=== PATIENT | female | born 1940 | race Caucasian/White ===

== ENCOUNTER → 2021-12-04 | Outpatient (CLI) | payer MEDICARE ==
[2021-12-04 17:55] LABS: Basophils # (A) 0.08 X 10*3/uL (0.00-0.10); Basophils % (A) 0.9 %; Eosinophils # (A) 0.17 X 10*3/uL (0.04-0.35); Eosinophils % (A) 1.9 %; HCT 41.8 % (37.2-46.3); HGB 13.9 g/dL (12.0-15.0); Immature Grans, Automated 0.4 %; Lymphocytes # (A) 1.69 X 10*3/uL (0.90-5.00); Lymphocytes % (A) 18.9 %; MCH 27.1 pg (27.0-32.0); MCHC 33.3 g/dL (32.0-37.0); MCV 81.5 fL (80.0-97.0); Mean Platelet Volume 10.5 fL (9.5-12.2); Monocytes # (A) 0.81 X 10*3/uL (0.20-1.00); NRBC Per 100 WBC 0 /100 WBCS (0.0-0.0); Neutrophils # (A) 6.17 X 10*3/uL (1.80-7.70); Neutrophils % (A) 68.9 %; Platelet Count 380 X 10*3/uL (140-440); RBC 5.13 X 10*6/uL (4.10-5.20); RDW 13.6 % (11.5-14.5); WBC 8.96 X 10*3/uL (4.50-10.00)
[2021-12-04 18:03] LABS: African American GFR (CKD) 71.2 (60.0-200.0); Anion Gap 13.5 mmol/L (10.00-18.00); BUN/Creat Ratio 15.9 Ratio (12.00-20.00); Blood Urea Nitrogen 14.1 mg/dL (9.0-27.0); Calcium 8.6 mg/dL (8.7-10.3); Carbon Dioxide 22.8 mmol/L (20.0-27.5); Non-African American GFR(CKD) 61.5 (60.0-200.0)
[2021-12-04 19:37] LABS: INR 1.01 (0.90-1.11); Prothrombin Time 11.1 sec (9.9-11.9)
== END | disposition home or self-care (01) ==
LOC: LABPAT 12:28
PROVIDERS: ATTEND Orthopaedic Surgery
DX: Z01.812 Encounter for preprocedural laboratory examination (principal); Z22.322 Carrier or suspected carrier of Methicillin resistant Staphylococcus aureus; M17.12 Unilateral primary osteoarthritis, left knee
CPT/HCPCS: 80048; 85025; 85610; 87070

== ENCOUNTER 2021-12-25 08:55 | Day surgery (SDC) | payer MEDICARE, BC ==
[2021-12-22 12:55] VITALS: BMI 29.2
--- NOTE | 2021-12-25 03:07 | HP ---
HISTORY AND PHYSICAL DATE OF SURGERY: 12/25/2021 Pat Chawla is an 81-year-old patient seen with progressive left knee pain. We discussed options for treatment. She elected to proceed with left total knee arthroplasty. Consent was obtained. Cardiac clearance provided by Dr. Tiwari. PAST MEDICAL HISTORY: Hypothyroidism, osteoarthritis. PAST SURGICAL HISTORY: Cholecystectomy, thyroidectomy. DAILY MEDICATIONS: Synthroid. ALLERGIES: None. SOCIAL HISTORY: She denies current tobacco use. PHYSICAL EVALUATION OF THE LEFT KNEE: Her range of motion is -7 to 110. Mild effusion. Tenderness, lateral joint line. Crepitus along the lateral patellofemoral compartments with range of motion. Pain with patellofemoral compression. Ligaments stable. Hip rotation without pain. Distal neurovascular exam is intact. RADIOGRAPHS: Left knee radiographs reveal severe lateral, moderate patellofemoral compartment osteoarthritis. IMPRESSION: 1. Left knee osteoarthritis. 2. Hypothyroidism. PLAN: Left total knee arthroplasty. MMODL / IJN: [id number] /
[~2021-12-25 08:55] MED LIST: ACETAMINOPHEN TAB 500 MG TAB PO PRN; DEXAMETHASONE SOD PHOSPHATE 4 MG/ML 1 ML VIAL IV ONE; HYDROmorphone 0.5 MG/0.5 ML SYRINGE IVP PRN; LIDOCAINE 1% (10MG/ML) FOR IV START INTRADERMA PRN; MELOXICAM 7.5 MG TAB PO PRN; ONDANSETRON 4 MG/2 ML VIAL IVP PRN; TRANEXAMIC ACID IN NACL,ISO-OS 1,000 MG in SALINE 1 100ML.BAG IVPB PRN
[2021-12-25] MEDS: LACTATED RINGERS 1,000 ML IV SCH (09:31)
[2021-12-25] MEDS ORDERED: MIDAZOLAM 2 MG/2 ML VIAL IVP ONE (09:59)
[2021-12-25] MEDS ORDERED: ceFAZolin 1,000 MG in SODIUM CHLORIDE 0.9% 1,000 ML IRRIGATION ONE (10:56)
[2021-12-25] MEDS ORDERED: LACTATED RINGERS 1,000 ML IV ONE (11:33)
[2021-12-25] MEDS ORDERED: HYDROcodone/APAP 5-325MG 1 EACH TAB PO PRN (11:49)
[2021-12-25] MEDS ORDERED: NALOXONE 0.4 MG/ML 1 ML VIAL IV PRN (11:49)
[2021-12-25] MEDS ORDERED: ONDANSETRON 4 MG/2 ML VIAL IVP PRN (11:49)
[2021-12-25] MEDS ORDERED: HYDROmorphone 0.5 MG/0.5 ML SYRINGE IVP PRN ×3 (11:49)
--- NOTE | 2021-12-25 11:49 | P.OP ---
Date of Procedure: 12/25/21 Preoperative Diagnosis: Left knee osteoarthritis Postoperative Diagnosis: Left knee osteoarthritis Procedure(s) Performed: Left total knee arthroplasty Implants: 1. Depuy attune size 4 narrow left cruciate retaining cemented femur 2. Depuy attune size 3 fixed bearing cemented tibial baseplate 3. Depuy attune size 4 fixed bearing cruciate retaining 6 mm polyethylene tibial insert 4. Depuy attune 35 mm all polyethylene cemented patella Anesthesia: spinal Surgeon: Sonny Brown Engine Dynamometer Tester #1: Pavel Gupta Estimated Blood Loss (ml): 45 Pathology: other (Bone) Condition: stable Disposition: PACU Indications for Procedure: 81-year-old patient seen with symptomatic left knee osteoarthritis. After having treatment options discussed, she elected to proceed with total knee arthroplasty. Operative Findings: She description of procedure Description of Procedure: Patient was taken to the operative suite after having an adductor canal catheter placed by the department of anesthesia. Patient underwent a spinal anesthetic by the department of anesthesia. Patient was given preoperative IV intake antibiotics and TXA. A well-padded tourniquet was placed about the [] lower extremity. The lower extremity was then prepped and draped in the normal sterile orthopedic fashion. The extremity was elevated, a tourniquet was insufflated to 300. A standard anterior incision was made sharply through skin. Dissection was taken down through the subcutaneous soft tissues down to the extensor mechanism. A medial arthrotomy was performed, patella was everted and knee was flexed. There was advanced osteoarthritis noted. I introduced my distal intramedullary femoral drill. I then introduced the distal femoral cutting jig. Conrado DOYLE secured the cutting jig with 2 pins. I held retractors in position while Conrado DOYLE performed the distal femoral resection through the guide area we now removed her distal femoral cutting guide. We now placed our 4-in-1 femoral cutting block and positioned and it was secured with 2 pins by Conrado DOYLE while I held the block in position. The distal femoral finishing was now completed. A proximal tibial cutting guide was positioned. I held the guide in the appropriate position with both hands well Conrado DOYLE inserted stabilizing pins into the guide. Proximal tibial cut was made. We now placed a trial femoral component into position, along with an appropriate size tibial tray and insert. We now took the knee through range of motion and had full extension good flexion and good overall soft tissue balance noted. The patella was everted and stabilized with 2 towel clips held by Conrado DOYLE while I performed a flush with patellar quad tendon utilizing a fresh sawblade. We templated the patella, appropriate drill holes were made. An appropriate trial patella was positioned, knee was taken through full range of motion with the patella tracking very nicely. The trial patella was removed. Drill holes were made through the femoral component. All trial components were removed after marking off the appropriate rotation of the tibia. Retractors were now positioned along the proximal tibia. An appropriate keel punch was made with the appropriate size tibial guide by myself on Conrado DOYLE assisted by holding retractors. At this point appropriate size implants were chosen and opened. The joint was irrigated copiously with pulse lavage mechanical irrigation. The posterior capsule was infiltrated with local analgesic. The wound was irrigated with pulse lavage mechanical irrigation. We mixed antibiotic methylmethacrylate. We placed the knee into flexion. We placed multiple retractors assisted by Conrado DOYLE to expose the proximal tibia. Once the methyl methacrylate was ready, the tibial component was cemented into place removing any excess methylmethacrylate form by both myself and Conrado DOYLE. The femoral component was cemented into place removing the removing any excess methylmethacrylate performed by both myself and Conrado DOYLE. We then inserted the appropriate size polyethylene tibial insert. We made sure that it was locked into position. We took the knee into full extension, and then back in a flexion making sure we had removed any excess methylmethacrylate. The patellar component was then cemented down and secured with clamp. Excess meth ylmethacrylate removed. We kept the knee in full extension, patellar clamp in position until methylmethacrylate had hardened. Once it had hardened the patellar clamp was removed. The knee was taken through full range of motion. The patella tracked nicely. There was good soft tissue balancing. The tourniquet was now released. Additional hemostasis was achieved via electrocautery. A second gram of TXA was given. The wound again was irrigated with pulse lavage mechanical irrigation. The extensor mechanism was repaired with Ethibond suture. We checked the repair with range of motion and it was stable. The subcutaneous soft tissues were repaired with Vicryl in layers. The skin was approximated with pernio/Dermabond. Sterile dressings were applied followed by loose web roll and Tam bandage. The patient was transferred to a bed, and taken to recovery in stable and satisfactory condition. Conrado DOYLE assisted with this complex procedure.
[2021-12-25] MEDS ORDERED: ROPIVACAINE 0.2%-NS ON-Q PUMP 2 MG/ML EACH MISCELLANE ONE (12:35)
--- NOTE | 2021-12-25 12:54 | XR ---
EXAMINATION TYPE: XR knee limited LT DATE OF EXAM: 12/25/2021 COMPARISON: 09/24/2014 HISTORY: Postknee replacement TECHNIQUE: 2 view left knee FINDINGS: Tibiofemoral components of place. Postsurgical soft tissue changes are present. No acute fr actures are evident. IMPRESSION: 1. No acute fracture post knee replacement
[2021-12-25] MEDS ORDERED: SYMBICORT INHALATION PRN (14:24)
[2021-12-25] MEDS: SODIUM CHLORIDE 0.9% 1,000 ML IV SCH (14:51)
[2021-12-25] MEDS: HYDROcodone/APAP 5-325MG 1 EACH TAB PO PRN (16:17)
--- NOTE | 2021-12-25 19:36 | P.ANPRN ---
Procedure Note - Anesthesia - Nerve Block Performed Left Adductor Canal Infusion Time Out Performed: Yes Date of Procedure: 12/25/21 Procedure Start Time: :59 Procedure Stop Time: :19 Location of Patient: PreOp Indication: Acute Post-Operative Pain, Requested by Surgeon Sedation Type: Sedate with meaningful contact maintained Preparation: Sterile Prep, Sterile Dressing Position: Supine Catheter: Indwelling Needle Types: Pajunk Needle Gauge: 21 Ultrasound used to visualize needle placement: Yes Ultrasound used to observe medication spread: Yes Blood Aspirated: No Pain Paresthesia on Injection Noted: No Resistance on Injection: Normal Image Stored and Saved: Yes Events: Uneventful and Well Tolerated (ropi .5% 25cc plus dexamethasone 4mg)
[2021-12-25] MEDS: SENNOSIDES-DOCUSATE SODIUM 1 EACH TAB PO SCH (20:17)
[2021-12-26] MEDS: LEVOTHYROXINE 75 MCG TAB PO SCH (06:13)
--- NOTE | 2021-12-26 07:04 | P.PN ---
Progress Note - Text 12/26/21 658am 81-year-old female status post total knee replacement by Dr. Cunningham. Patient has an On-Q pump for postop pain control with the solution running at 8 mL an hour with a VAS of 0. Dressing clean dry and intact. Plan to continue On-Q pump infusion
[2021-12-26] MEDS: LACTATED RINGERS 1,000 ML IV SCH (07:37)
--- NOTE | 2021-12-26 09:19 | P.CONS ---
History of Present Illness - Reason for Consult Consult date: 12/25/21 Medical management - Chief Complaint Status post surgery - History of Present Illness Patient is a 81-year-old female with a known history of hypertension, COPD, hypothyroidism and obstructive sleep apnea not on CPAP at home and prior history of smoking was hospital for left total knee arthroplasty. Patient tolerated the procedure. Currently denied any complaints of pain. On nerve block. No complaints of headache or dizziness or lightheadedness. No fever no chills. No cough or sputum production. No nausea vomiting or abdominal pain or diarrhea. Denied any dysuria. Postoperative blood pressure is on the lower side. Patient is not on home oxygen at home. No complaints of chest pain or shortness of breath. Review of Systems Constitutional: Patient denies any fever or chills . No generalized weakness or weight loss. Abdomen: Patient denied nausea vomiting and diarrhea and abdominal pain. Cardiovascular: Patient denies any chest pain or short of breath no palpitations. Respiratory: patient denied any cough is from production. No shortness of breath Neurologic: Patient denied any numbness or tingling headache. Musculoskeletal: Patient denies any complaints of joint swelling or deformity. Skin: Negative Psychiatric: Negative Endocrine: No heat or cold intolerance. No recent weight gain. Genitourinary: No dysuria or hematuria. All other 14 point ROS negative except the above Past Medical History Past Medical History: COPD, Hypertension, Rheumatoid Arthritis (RA), Sleep Apnea/CPAP/BIPAP, Thyroid Disorder Additional Past Medical History / Comment(s): "Rheumatoid lung". No CPAP use. History of Any Multi-Drug Resistant Organisms: None Reported Past Surgical History: Cholecystectomy Additional Past Surgical History / Comment(s): Partial Thyroidectomy, D&C. Past Anesthesia/Blood Transfusion Reactions: No Reported Reaction Past Psychological History: No Psychological Hx Reported Smoking Status: Former smoker Past Alcohol Use History: Occasional Additional Past Alcohol Use History / Comment(s): Quit smoking in 1999. Past Drug Use History: None Reported - Past Family History Mother Family Medical History: No Reported History Medications and Allergies Home Medications Medication Instructions Recorded Confirmed Type Levothyroxine Sodium [Synthroid] 75 mcg PO QAM 08/22/14 12/22/21 History Symbicort Inhaler (Unknown Dose) 1 puff INHALATION DAILY PRN 06/13/15 12/25/21 History Metoprolol Tartrate [Lopressor] 50 mg PO QAM 12/22/21 12/22/21 History Allergies Allergy/AdvReac Type Severity Reaction Status Date / Time No Known Allergies Allergy Verified 12/25/21 09:36 Physical Exam Vitals: Vital Signs Temp Pulse Pulse Resp BP Pulse Ox 12/25/21 14:00 97.2 F L 69 17 112/60 96 12/25/21 12:50 74 16 106/57 97 12/25/21 12:35 66 16 104/54 100 12/25/21 12:20 97.3 F L 71 14 111/54 99 12/25/21 10:21 85 16 118/68 94 L 12/25/21 09:34 98.5 F 12/25/21 09:23 98.7 F 89 16 166/72 97 Intake and Output 12/24/21 12/25/21 12/25/21 22:59 06:59 14:59 Intake Total 1401 Output Total 45 Balance 1356 Intake: IV 1401 Output: Estimated Blood Loss 45 Other: Weight 70.4 kg PHYSICAL EXAMINATION: Patient is lying in the bed comfortably, no acute distress, awake alert and oriented.. HEENT: Normocephalic. Neck is supple. Pupils reactive. Nostrils clear. Oral cavity is moist. Neck reveals no JVD, carotid bruits, or thyromegaly. CHEST EXAMINATION: Trachea is central. Symmetrical expansion. Lung ibarra clear to auscultation and percussion. CARDIAC: Normal S1, S2 with no gallops. No murmurs ABDOMEN: Soft. Bowel sounds normal. No organomegaly. No abdominal bruits. Extremities: reveal no edema. No clubbing or cyanosis Neurologically awake, alert, oriented x3 with well-coordinated movements. No focal deficits noted Skin: No rash or skin lesions. Psychiatric: Coperative. Nonsuicidal Musculoskeletal: No joint swelling or deformity. Normal range of motion. Assessment and Plan Assessment: Status post left total knee arthroplasty postoperative day 0 Hypertension controlled now COPD not in exacerbation. Patient is not on home oxygen Obstructive sleep apnea not on CPAP at home Previous history of smoking DVT prophylaxis and GI prophylaxis Plan: Patient will be continued on current pain medication, bowel regimen and encourage incentive spirometry. Patient will be continued on metoprolol and other home medications including levothyroxine starting tomorrow morning. Albuterol inhalation as needed and continue with Symbicort. Follow-up CBC and BMP tomorrow. Further recommendations based on the clinical course. Thank you for your consult.
[2021-12-26] MEDS: ENOXAPARIN 40 MG/0.4 ML SYRINGE SQ SCH (09:20)
[2021-12-26] MEDS: METOPROLOL TARTRATE 50 MG TAB PO SCH (09:20)
[2021-12-26] MEDS: SODIUM CHLORIDE 0.9% 1,000 ML IV SCH (09:21)
[2021-12-26 10:03] LABS: Basophils # (A) 0.03 X 10*3/uL (0.00-0.10); Basophils % (A) 0.3 %; Eosinophils # (A) 0.01 X 10*3/uL (0.04-0.35); Eosinophils % (A) 0.1 %; HCT 36.6 % (37.2-46.3); HGB 11.8 g/dL (12.0-15.0); Immature Grans, Automated 0.4 %; Lymphocytes # (A) 1.27 X 10*3/uL (0.90-5.00); Lymphocytes % (A) 10.7 %; MCH 27.3 pg (27.0-32.0); MCHC 32.2 g/dL (32.0-37.0); MCV 84.7 fL (80.0-97.0); Mean Platelet Volume 10.5 fL (9.5-12.2); Monocytes # (A) 1.17 X 10*3/uL (0.20-1.00); Monocytes % (A) 9.8 %; NRBC Per 100 WBC 0 /100 WBCS (0.0-0.0); Neutrophils # (A) 9.38 X 10*3/uL (1.80-7.70); Neutrophils % (A) 78.7 %; Platelet Count 323 X 10*3/uL (140-440); RBC 4.32 X 10*6/uL (4.10-5.20); RDW 14.1 % (11.5-14.5); WBC 11.91 X 10*3/uL (4.50-10.00)
--- NOTE | 2021-12-26 10:30 | P.PN ---
Subjective Progress Note Date: 12/26/21 Principal diagnosis: Left knee osteoarthritis Patient was seen at bedside resting template sitting up in chair. Patient says she did get up with physical therapy this morning and walk to the bathroom and around the room. Patient says she does have a walker for home. Patient says she lives at home alone. Patient says she has not had bowel movement yet, however, patient says she has been passing gas. Patient says she has been urinating since surgery. Patient denies chest pain, fever, short of breath, nausea, vomiting, change in vision, loss of bowel/bladder control. Objective - Vital Signs Vital signs: Vital Signs Temp 97.9 F 12/26/21 08:00 Pulse 76 12/26/21 08:00 Resp 14 12/26/21 08:00 BP 116/65 12/26/21 08:00 Pulse Ox 98 12/26/21 08:00 FiO2 Intake & Output 12/25/21 12/26/21 12/26/21 18:59 06:59 18:59 Intake Total 1401 Output Total 45 Balance 1356 Weight 70.4 kg Intake: IV 1401 Output: Estimated Blood Loss 45 Other: Voiding Method Bedpan # Voids 3 - Exam Left knee: Incision is clean, dry, and intact. The silver foam dressing is in good condition. There is minimal soft tissue swelling and ecchymosis surrounding the medial and lateral aspects of the incision. Calf is soft, no tenderness with palpation. Plantar flexion, dorsiflexion, EHL, FHL are intact. Sensory exam to light touch throughout the extremity is intact, dorsal pedis pulses 2+. - Labs CBC & Chem 7: 12/26/21 05:58 Labs: Abnormal Lab Results - Last 24 Hours (Table) 12/26/21 Range/Units 05:58 WBC 11.91 H (4.50-10.00) X 10*3/uL Hgb 11.8 L (12.0-15.0) g/dL Hct 36.6 L (37.2-46.3) % Immature Gran # 0.05 H (0.00-0.04) X 10*3/uL Neutrophils # 9.38 H (1.80-7.70) X 10*3/uL Monocytes # 1.17 H (0.20-1.00) X 10*3/uL Eosinophils # 0.01 L (0.04-0.35) X 10*3/uL Assessment and Plan Assessment: 1. Left knee osteoarthritis - Postoperative day 1 status post left total knee arthroplasty Plan: 1. Left knee osteoarthritis - left total knee arthroplasty from , , 12/25/2021. Patient was stable at bedside this morning. Patient does have a walker for home. Patient did work with physical therapy this morning and was able to get up to the bathroom and back to chair. At this time patient will stay one more night and plan for discharge home tomorrow, 12/27/2021 with health services vs [facility]. 2. Appreciate medical management 3. Pain management - [place] 4. DVT prophylaxis - Lovenox 5. GI prophylaxis - senna 6. PT/OT - weightbearing as tolerated with walker 7. Encourage incentive spirometer use 8. Discharge planning - plan for discharge home tomorrow with health services versus [facility] Time with Patient: Less than 30
[2021-12-26] MEDS: MULTIVITAMINS, THERA 1 EACH TAB PO SCH (12:55)
[2021-12-26] MEDS: HYDROcodone/APAP 5-325MG 1 EACH TAB PO PRN ×2 (15:04→22:03)
[2021-12-26] MEDS: SENNOSIDES-DOCUSATE SODIUM 1 EACH TAB PO SCH ×2 (22:02→22:06)
[2021-12-27] MEDS: LACTATED RINGERS 1,000 ML IV SCH (06:09)
[2021-12-27] MEDS: LEVOTHYROXINE 75 MCG TAB PO SCH (06:10)
[2021-12-27] MEDS: ENOXAPARIN 40 MG/0.4 ML SYRINGE SQ SCH (08:48)
[2021-12-27] MEDS: HYDROcodone/APAP 5-325MG 1 EACH TAB PO PRN ×2 (08:48→19:36)
[2021-12-27] MEDS: METOPROLOL TARTRATE 50 MG TAB PO SCH (08:48)
[2021-12-27] MEDS: MULTIVITAMINS, THERA 1 EACH TAB PO SCH (08:48)
--- NOTE | 2021-12-27 11:20 | P.PN ---
Subjective Progress Note Date: 12/27/21 Principal diagnosis: Left knee osteoarthritis Patient was seen at bedside this morning. Patient says she did get up with physical therapy this morning and walked into hallway using walker. Patient says she does have a walker for home. Patient says she lives at home alone. Patient says she has not had bowel movement yet, however, patient says she has been passing gas. Patient says she has been urinating since surgery. Patient denies chest pain, fever, short of breath, nausea, vomiting, change in vision, loss of bowel/bladder control. Objective - Vital Signs Vital signs: Vital Signs Temp 98.7 F 12/27/21 07:59 Pulse 88 12/27/21 07:59 Resp 16 12/27/21 07:59 BP 124/72 12/27/21 07:59 Pulse Ox 91 L 12/27/21 07:59 FiO2 Intake & Output 12/26/21 12/27/21 12/27/21 18:59 06:59 18:59 Intake Total 500 Balance 500 Intake: Oral 500 Other: Voiding Method Toilet Toilet Bedside Commode # Voids 5 - Exam Left knee: Incision is clean, dry, and intact. The silver foam dressing is in good condit ion. There is minimal soft tissue swelling and ecchymosis surrounding the medial and lateral aspects of the incision. Calf is soft, no tenderness with palpation. Plantar flexion, dorsiflexion, EHL, FHL are intact. Sensory exam to light touch throughout the extremity is intact, dorsal pedis pulses 2+. - Labs CBC & Chem 7: 12/26/21 05:58 Assessment and Plan Assessment: 1. Left knee osteoarthritis - Postoperative day 2 status post left total knee arthroplasty Plan: 1. Left knee osteoarthritis - left total knee arthroplasty perfromed , 12/25/2021. Patient was stable at bedside this morning. Patient does have a walker for home. Patient did work with physical therapy this morning and was able to walk around room and into hallway. Physical therapy is recommending [facility] upon discharge. Plan for discharge to [facility] on 12/29/2021. 2. Appreciate medical management 3. Pain management - [place] 4. DVT prophylaxis - Lovenox 5. GI prophylaxis - senna 6. PT/OT - weightbearing as tolerated with walker 7. Encourage incentive spirometer use 8. Discharge planning - Plan for discharge to [facility] on 12/29/2021. Time with Patient: Less than 30
[2021-12-27] MEDS: SENNOSIDES-DOCUSATE SODIUM 1 EACH TAB PO SCH (19:36)
[2021-12-28] MEDS: LACTATED RINGERS 1,000 ML IV SCH (05:49)
[2021-12-28] MEDS: LEVOTHYROXINE 75 MCG TAB PO SCH (05:49)
[2021-12-28] MEDS: METOPROLOL TARTRATE 50 MG TAB PO SCH (08:34)
[2021-12-28] MEDS: ENOXAPARIN 40 MG/0.4 ML SYRINGE SQ SCH (08:34)
[2021-12-28 09:31] LABS: Basophils # (A) 0.07 X 10*3/uL (0.00-0.10); Basophils % (A) 0.8 %; Eosinophils # (A) 0.21 X 10*3/uL (0.04-0.35); Eosinophils % (A) 2.5 %; HCT 37.2 % (37.2-46.3); HGB 12.2 g/dL (12.0-15.0); Immature Grans, Automated 0.4 %; Lymphocytes # (A) 1.88 X 10*3/uL (0.90-5.00); Lymphocytes % (A) 22.5 %; MCH 27.6 pg (27.0-32.0); MCHC 32.8 g/dL (32.0-37.0); MCV 84.2 fL (80.0-97.0); Mean Platelet Volume 10.3 fL (9.5-12.2); Monocytes # (A) 1.03 X 10*3/uL (0.20-1.00); Monocytes % (A) 12.3 %; NRBC Per 100 WBC 0 /100 WBCS (0.0-0.0); Neutrophils # (A) 5.15 X 10*3/uL (1.80-7.70); Neutrophils % (A) 61.5 %; Platelet Count 302 X 10*3/uL (140-440); RBC 4.42 X 10*6/uL (4.10-5.20); RDW 14.4 % (11.5-14.5); WBC 8.37 X 10*3/uL (4.50-10.00)
--- NOTE | 2021-12-28 10:54 | P.PN ---
Subjective Progress Note Date: 12/28/21 Principal diagnosis: Left knee osteoarthritis Patient was seen at bedside this morning. Patient says she did get up with physical therapy this morning and walked into hallway using walker. Patient says she does have a walker for home. Patient says she lives at home alone. Patient says she has not had bowel movement yet, however, patient says she has been passing gas. Patient says she has been urinating since surgery. Patient denies chest pain, fever, short of breath, nausea, vomiting, change in vision, loss of bowel/bladder control. Objective - Vital Signs Vital signs: Vital Signs Temp 97.9 F 12/28/21 02:00 Pulse 99 12/28/21 02:00 Resp 17 12/27/21 19:36 BP 126/73 12/28/21 02:00 Pulse Ox 94 L 12/28/21 02:00 FiO2 Intake & Output 12/27/21 12/28/21 12/28/21 18:59 06:59 18:59 Intake Total 0 Balance 0 Intake: Intake, IV Titration 0 Amount Sodium Chloride 0.9% 1, 0 000 ml @ 50 mls/hr IV . Q20H [facility] Rx#:[id number] Other: Voiding Method Toilet # Voids 1 - Exam Left knee: Incision is clean, dry, and intact. The silver foam dressing is in good condition. There is minimal soft tissue swelling and ecchymosis surrounding the medial and lateral aspects of the incision. Calf is soft, no tenderness with palpation. Plantar flexion, dorsiflexion, EHL, FHL are intact. Sensory exam to light touch throughout the extremity is intact, dorsal pedis pulses 2+. - Labs CBC & Chem 7: 12/28/21 03:48 Assessment and Plan Assessment: 1. Left knee osteoarthritis - Postoperative day 3 status post left total knee arthroplasty Plan: 1. Left knee osteoarthritis - left total knee arthroplasty perfromed , 12/25/2021. Patient was stable at bedside this morning. Patient does have a walker for home. Patient did work with physical therapy this morning and was able to walk around room and into hallway. Physical therapy is recommending [facility] upon discharge. Plan for discharge to [facility], 12/29/2021. 2. Appreciate medical management 3. Pain management - [place] 4. DVT prophylaxis - Lovenox 5. GI prophylaxis - senna 6. PT/OT - weightbearing as tolerated with walker 7. Encourage incentive spirometer use 8. Discharge planning - Plan for discharge to [facility], 12/29/2021. Time with Patient: Less than 30
[2021-12-28] MEDS: MULTIVITAMINS, THERA 1 EACH TAB PO SCH (11:21)
--- NOTE | 2021-12-28 12:04 | P.PN ---
Subjective Progress Note Date: 12/26/21 Patient is a 81-year-old female with a known history of hypertension, COPD, hypothyroidism and obstructive sleep apnea not on CPAP at home and prior history of smoking was hospital for left total knee arthroplasty. Patient tolerated the procedure. Currently denied any complaints of pain. On nerve block. No complaints of headache or dizziness or lightheadedness. No fever no chills. No cough or sputum production. No nausea vomiting or abdominal pain or diarrhea. Denied any dysuria. Postoperative blood pressure is on the lower side. Patient is not on home oxygen at home. No complaints of chest pain or shortness of breath. 12/26/2021 Patient is currently resting in the bed. Awake alert and oriented 3. Complains of left knee pain but improved with medications. No fever no chills. No nausea vomiting or abdominal pain or diarrhea. No cough or sputum production. Patient was encouraged with incentive spirometry. Was able to participate in physical therapy. Laboratory data showed WBC 10.3 hemoglobin 10.4 and platelets 176 Sodium 1:30 potassium 3.9 chloride 91 bicarb is 29 BUN 15 and creatinine 0.4. Current medications reviewed. Objective - Vital Signs Vital signs: Vital Signs Temp 97.9 F 12/26/21 08:00 Pulse 76 12/26/21 08:00 Resp 14 12/26/21 08:00 BP 116/65 12/26/21 08:00 Pulse Ox 98 12/26/21 08:00 FiO2 Intake & Output 12/25/21 12/26/21 12/26/21 18:59 06:59 18:59 Intake Total 1401 Output Total 45 Balance 1356 Weight 70.4 kg Intake: IV 1401 Output: Estimated Blood Loss 45 Other: Voiding Method Bedpan # Voids 3 - Exam PHYSICAL EXAMINATION: Patient is lying in the bed comfortably, no acute distress, awake alert and oriented.. HEENT: Normocephalic. Neck is supple. Pupils reactive. Nostrils clear. Oral cavity is moist. Neck reveals no JVD, carotid bruits, or thyromegaly. CHEST EXAMINATION: Trachea is central. Symmetrical expansion. Lung ibarra clear to auscultation and percussion. CARDIAC: Normal S1, S2 with no gallops. No murmurs ABDOMEN: Soft. Bowel sounds normal. No organomegaly. No abdominal bruits. Extremities: reveal no edema. No clubbing or cyanosis Neurologically awake, alert, oriented x3 with well-coordinated movements. No focal deficits noted Skin: No rash or skin lesions. Psychiatric: Coperative. Nonsuicidal Musculoskeletal: No joint swelling or deformity. Normal range of motion. - Labs CBC & Chem 7: 12/28/21 03:48 Assessment and Plan Assessment: Status post left total knee arthroplasty postoperative day 1 Hypertension controlled now COPD not in exacerbation. Patient is not on home oxygen Obstructive sleep apnea not on CPAP at home Previous history of smoking DVT prophylaxis and GI prophylaxis Plan: Patient will be continued on current pain medication, bowel regimen and encourage incentive spirometry. Patient will be continued on metoprolol and other home medications including levothyroxine restarted.. Albuterol inhalation as needed and continue with Symbicort. We will continue to follow and Further recommendations based on the clinical c marcie.
--- NOTE | 2021-12-28 12:05 | P.PN ---
Subjective Progress Note Date: 12/27/21 Patient is a 81-year-old female with a known history of hypertension, COPD, hypothyroidism and obstructive sleep apnea not on CPAP at home and prior history of smoking was hospital for left total knee arthroplasty. Patient tolerated the procedure. Currently denied any complaints of pain. On nerve block. No complaints of headache or dizziness or lightheadedness. No fever no chills. No cough or sputum production. No nausea vomiting or abdominal pain or diarrhea. Denied any dysuria. Postoperative blood pressure is on the lower side. Patient is not on home oxygen at home. No complaints of chest pain or shortness of breath. 12/26/2021 Patient is currently resting in the bed. Awake alert and oriented 3. Complains of left knee pain but improved with medications. No fever no chills. No nausea vomiting or abdominal pain or diarrhea. No cough or sputum production. Patient was encouraged with incentive spirometry. Was able to participate in physical therapy. Laboratory data showed WBC 10.3 hemoglobin 10.4 and platelets 176 Sodium 1:30 potassium 3.9 chloride 91 bicarb is 29 BUN 15 and creatinine 0.4. 12/27/2021 Patient is lying in the bed awake alert oriented 3. Knee pain is better. No complaints of chest pain or shortness of breath. No nausea vomiting abdominal pain or diarrhea. No cough or sputum production. Tolerating oral diet. Patient was encouraged with incentive spirometry. No other acute overnight issues. Blood pressure is controlled and patient is on room air saturating at 94%. Current medications reviewed. Objective - Vital Signs Vital signs: Vital Signs Temp 99.0 F 12/27/21 19:34 Pulse 93 12/27/21 19:34 Resp 17 12/27/21 19:34 BP 135/70 12/27/21 19:34 Pulse Ox 93 L 12/27/21 19:34 FiO2 Intake & Output 12/27/21 12/27/21 12/28/21 06:59 18:59 06:59 Intake Total 0 Balance 0 Intake: Intake, IV Titration 0 Amount Sodium Chloride 0.9% 1, 0 000 ml @ 50 mls/hr IV . Q20H [facility] Rx#:[id number] Other: Voiding Method Toilet # Voids 5 - Exam PHYSICAL EXAMINATION: Patient is lying in the bed comfortably, no acute distress, awake alert and oriented.. HEENT: Normocephalic. Neck is supple. Pupils reactive. Nostrils clear. Oral cavity is moist. Neck reveals no JVD, carotid bruits, or thyromegaly. CHEST EXAMINATION: Trachea is central. Symmetrical expansion. Lung ibarra clear to auscultation and percussion. CARDIAC: Normal S1, S2 with no gallops. No murmurs ABDOMEN: Soft. Bowel sounds normal. No organomegaly. No abdominal bruits. Extremities: reveal no edema. No clubbing or cyanosis Neurologically awake, alert, oriented x3 with well-coordinated movements. No focal deficits noted Skin: No rash or skin lesions. Psychiatric: Coperative. Nonsuicidal Musculoskeletal: No joint swelling or deformity. Normal range of motion. - Labs CBC & Chem 7: 12/28/21 03:48 Assessment and Plan Assessment: Status post left total knee arthroplasty postoperative day 2 Hypertension controlled now COPD not in exacerbation. Patient is not on home oxygen Obstructive sleep apnea not on CPAP at home Previous history of smoking DVT prophylaxis and GI prophylaxis Plan: Patient will be continued on current pain medication, bowel regimen and encourage incentive spirometry. Patient will be continued on metoprolol and other home medications including levothyroxine restarted.. Albuterol inhalation as needed and continue with Symbicort. We will continue to follow and Further recommendations based on the clinical course.
[2021-12-28] MEDS: SENNOSIDES-DOCUSATE SODIUM 1 EACH TAB PO SCH (20:40)
[2021-12-29] MEDS: LEVOTHYROXINE 75 MCG TAB PO SCH (05:37)
[2021-12-29] MEDS: METOPROLOL TARTRATE 50 MG TAB PO SCH (09:42)
[2021-12-29] MEDS: ENOXAPARIN 40 MG/0.4 ML SYRINGE SQ SCH (09:42)
--- NOTE | 2021-12-29 11:31 | P.PN ---
Subjective Progress Note Date: 12/28/21 Patient is a 81-year-old female with a known history of hypertension, COPD, hypothyroidism and obstructive sleep apnea not on CPAP at home and prior history of smoking was hospital for left total knee arthroplasty. Patient tolerated the procedure. Currently denied any complaints of pain. On nerve block. No complaints of headache or dizziness or lightheadedness. No fever no chills. No cough or sputum production. No nausea vomiting or abdominal pain or diarrhea. Denied any dysuria. Postoperative blood pressure is on the lower side. Patient is not on home oxygen at home. No complaints of chest pain or shortness of breath. 12/26/2021 Patient is currently resting in the bed. Awake alert and oriented 3. Complains of left knee pain but improved with medications. No fever no chills. No nausea vomiting or abdominal pain or diarrhea. No cough or sputum production. Patient was encouraged with incentive spirometry. Was able to participate in physical therapy. Laboratory data showed WBC 10.3 hemoglobin 10.4 and platelets 176 Sodium 1:30 potassium 3.9 chloride 91 bicarb is 29 BUN 15 and creatinine 0.4. 12/27/2021 Patient is lying in the bed awake alert oriented 3. Knee pain is better. No complaints of chest pain or shortness of breath. No nausea vomiting abdominal pain or diarrhea. No cough or sputum production. Tolerating oral diet. Patient was encouraged with incentive spirometry. No other acute overnight issues. Blood pressure is controlled and patient is on room air saturating at 94%. 2001 Patient is resting in bed comfortably. Awake alert oriented 3 no complaints of fever or chills. No chest pain or shortness of breath. denied any bowel movement yet today. No cough or sputum production. Left knee pain is better. Patient is able to walk with walker. No other acute overnight issues. Current medications reviewed. Objective - Vital Signs Vital signs: Vital Signs Temp 98.0 F 12/28/21 08:00 Pulse 82 12/28/21 08:00 Resp 16 12/28/21 08:00 BP 107/63 12/28/21 08:00 Pulse Ox 94 L 12/28/21 08:00 FiO2 Intake & Output 12/27/21 12/28/21 12/28/21 18:59 06:59 18:59 Intake Total 0 Balance 0 Intake: Intake, IV Titration 0 Amount Sodium Chloride 0.9% 1, 0 000 ml @ 50 mls/hr IV . Q20H [facility] Rx#:[id number] Other: Voiding Method Toilet # Voids 1 - Exam PHYSICAL EXAMINATION: Patient is lying in the bed comfortably, no acute distress, awake alert and or iented.. HEENT: Normocephalic. Neck is supple. Pupils reactive. Nostrils clear. Oral cavity is moist. Neck reveals no JVD, carotid bruits, or thyromegaly. CHEST EXAMINATION: Trachea is central. Symmetrical expansion. Lung ibarra clear to auscultation and percussion. CARDIAC: Normal S1, S2 with no gallops. No murmurs ABDOMEN: Soft. Bowel sounds normal. No organomegaly. No abdominal bruits. Extremities: reveal no edema. No clubbing or cyanosis Neurologically awake, alert, oriented x3 with well-coordinated movements. No focal deficits noted Skin: No rash or skin lesions. Psychiatric: Coperative. Nonsuicidal Musculoskeletal: No joint swelling or deformity. Normal range of motion. - Labs CBC & Chem 7: 12/28/21 03:48 Labs: Abnormal Lab Results - Last 24 Hours (Table) 12/28/21 Range/Units 03:48 Monocytes # 1.03 H (0.20-1.00) X 10*3/uL Assessment and Plan Assessment: Status post left total knee arthroplasty postoperative day 3 Hypertension controlled now COPD not in exacerbation. Patient is not on home oxygen Obstructive sleep apnea not on CPAP at home Previous history of smoking DVT prophylaxis and GI prophylaxis Plan: Patient will be continued on current pain medication, bowel regimen and encourage incentive spirometry. Patient will be continued on metoprolol and other home medications including levothyroxine restarted.. Albuterol inhalation as needed and continue with Symbicort. We will continue to follow and Further recommendations based on the clinical course.
--- NOTE | 2021-12-29 12:35 | P.PN ---
Subjective Progress Note Date: 12/29/21 Principal diagnosis: Left knee osteoarthritis Patient was seen at bedside this morning. Patient says she did get up with physical therapy this morning and walked into hallway using walker. Patient says she does have a walker for home. Patient says she lives at home alone. Patient says she has not had bowel movement yet, however, patient says she has been passing gas. Patient says she has been urinating since surgery. Patient denies chest pain, fever, short of breath, nausea, vomiting, change in vision, loss of bowel/bladder control. Objective - Vital Signs Vital signs: Vital Signs Temp 97.7 F 12/29/21 07:50 Pulse 90 12/29/21 07:50 Resp 18 12/29/21 07:50 BP 122/63 12/29/21 07:50 Pulse Ox 91 L 12/29/21 07:50 FiO2 Intake & Output 12/28/21 12/29/21 12/29/21 18:59 06:59 18:59 Output Total 300 Balance -300 Output: Urine 300 Other: Voiding Method Toilet - Exam Left knee: Incision is clean, dry, and intact. The silver foam dressing is in good condition. There is minimal soft tissue swelling and ecchymosis surrounding the medial and lateral aspects of the incision. Calf is soft, no tenderness with palpation. Plantar flexion, dorsiflexion, EHL, FHL are intact. Sensory exam to light touch throughout the extremity is intact, dorsal pedis pulses 2+. - Labs CBC & Chem 7: 12/28/21 03:48 Assessment and Plan Assessment: 1. Left knee osteoarthritis - Postoperative day 4 status post left total knee arthroplasty Plan: 1. Left knee osteoarthritis - left total knee arthroplasty perfromed , 12/25/2021. Patient was stable at bedside this morning. Patient does have a walker for home. Patient did work with physical therapy this morning and was able to walk around room and into hallway. Physical therapy is recommending [facility] upon discharge. Plan for discharge to [facility] today, 12/29/2021. 2. Appreciate medical management 3. Pain management - [place] 4. DVT prophylaxis - Lovenox; to [facility] with Eliquis 5. GI prophylaxis - senna; to [facility] with Colace 6. PT/OT - weightbearing as tolerated with walker 7. Encourage incentive spirometer use 8. Discharge planning - Plan for discharge to [facility] today, 12/29/2021. Time with Patient: Less than 30
--- NOTE | 2021-12-29 12:42 | P.DS ---
Providers Date of admission: 12/25/2021 Expected date of discharge: 12/29/21 Attending physician: Sonny Brown Consults: 12/25/21 11:49 Consult Physician Routine Consulting Provider: Angelica Mosher Consult Reason/Comments: Medical management Do you want consulting provider notified?: Yes Primary care physician: Megahn Adam Hospital Course: Date of admission: 12/25/2021 Date of discharge: 12/29/2021 Admission diagnosis: Left knee osteoarthritis Discharge diagnosis: Same Attending physician: Dr. Brown Surgical procedures: Left total knee arthroplasty Brief history: Patient is a 81-year-old female with a history of progressive primary left knee osteoarthritis. At this point patient has failed conservative treatment measures and has opted to proceed with a elective left total knee arthroplasty. Hospital course: Details of patient's surgery can be found in operative report. Patient tolerated the procedure well and was subsequently transported to orthopedic floor. Patient's orthopeidc and medical care was provided daily. Patient had daily laboratory tests performed for evaluation of overall blood counts. Patient had daily physical therapy to include strengthening range of motion as well as education with walker ambulation. Patient was treated with Lovenox for their postoperative DVT prophylaxis during their inpatient stay. Patient was noted to have a relatively uneventful postoperative course. Patient reported satisfactory pain control with oral pain medications by postoperative day 4. Patient showed satisfactory progress with physical therapy. Patient moved steadily through the program and had no difficulty meeting the goals by postoperative day 4. Given patient's otherwise satisfactory course and having met physical therapy goals, plan is to discharge patient to rehab on postoperative day 4. Discharge condition/disposition: Patient will be discharged to rehab in stable condition. Discharge medications: Instructions are given on resumption of patient's normal daily medications per primary care recommendation, in addition patient will be prescribed [place]; Colace; Eliquis. Discharge instructions: 1. Wound care and infection precautions, keep incision dry and covered while showering, no lotions, creams, moisturizers. No soaking, tubs, pools, hottubs. Do not scrub over the incision. 2. Weight-bear as tolerated with walker / cane until follow-up. 3. Ice and elevate when necessary. Do not exceed 20 minutes per hour with ice pack. 4. Utilize compression sleeve until seen at first follow up appointment. 5. Visiting nursing care. 6. Home physical therapy 7. Pain meds and anticoagulants per prescription. 8. Pain medication has potential to cause constipation. Increase oral fluid and fiber intake. Contact primary care provider if you have not had a bowel movement within 48 hours after discharge 9. No anti-inflammatory medication until discussed at first post operative visit, this including Motrin, Aleve, Mobic, Diclofenac, Aspirin. 10. Follow up in office at 2 weeks postop with Conrado Gupta PA-C / Zachary Eden PA-C 11. Follow up with your primary care doctor 7-10 days after discharge. 12. Contact [facility] with any questions, . Assessment: Left knee osteoarthritis Procedures: Left total knee arthroplasty Patient Condition at Discharge: Good Plan - Discharge Summary Discharge Rx Participant: No New Discharge Prescriptions: New HYDROcodone/APAP 5-325MG [[place] 5-325] 1 tab PO Q6HR PRN #28 tab PRN Reason: Pain Docusate [Colace] 100 mg PO DAILY #30 capsule Apixaban [Eliquis] 2.5 mg PO BID #60 tab Continue Levothyroxine Sodium [Synthroid] 75 mcg PO QAM Symbicort Inhaler (Unknown Dose) 1 puff INHALATION DAILY PRN PRN Reason: Dyspnea Metoprolol Tartrate [Lopressor] 50 mg PO QAM Discharge Medication List Levothyroxine Sodium [Synthroid] 75 mcg PO QAM 08/22/14 [History] Symbicort Inhaler (Unknown Dose) 1 puff INHALATION DAILY PRN 06/13/15 [History] Metoprolol Tartrate [Lopressor] 50 mg PO QAM 12/22/21 [History] Apixaban [Eliquis] 2.5 mg PO BID #60 tab 12/29/21 [Rx] Docusate [Colace] 100 mg PO DAILY #30 capsule 12/29/21 [Rx] HYDROcodone/APAP 5-325MG [[place] 5-325] 1 tab PO Q6HR PRN #28 tab 12/29/21 [Rx] Follow up Appointment(s)/Referral(s): Yoav Smith, [NON-STAFF] - As Needed [facility], [NON-STAFF] - ([facility] to arrange a visit) Patient Instructions/Handouts: *Surgery [facility] - On-Q Pain Pump Discharge Ins tructions, Knee Replacement (DC) Activity/Diet/Wound Care/Special Instructions: Discharge instructions: 1. Wound care and infection precautions, keep incision dry and covered while showering, no lotions, creams, moisturizers. No soaking, tubs, pools, hottubs. Do not scrub over the incision. 2. Weight-bear as tolerated with walker / cane until follow-up. 3. Ice and elevate when necessary. Do not exceed 20 minutes per hour with ice pack. 4. Utilize compression sleeve until seen at first follow up appointment. 5. Visiting nursing care. 6. Home physical therapy 7. Pain meds and anticoagulants per prescription. 8. Pain medication has potential to cause constipation. Increase oral fluid and fiber intake. Contact primary care provider if you have not had a bowel movement within 48 hours after discharge 9. No anti-inflammatory medication until discussed at first post operative visit, this including Motrin, Aleve, Mobic, Diclofenac, Aspirin. 10. Follow up in office at 2 weeks postop with Conrado Gupta PA-C / Zachary Eden PA-C 11. Follow up with your primary care doctor 7-10 days after discharge. 12. Contact [facility] with any questions, . Keep incision clean, dry, intact. While showering, cover silver foam dressing with Saran wrap. Silver foam dressing may be removed on , 01/01/2022 Medications: [place]; Colace; Eliquis Discharge Disposition: TRANSFER TO SNF/ECF
[2021-12-29] MEDS: MULTIVITAMINS, THERA 1 EACH TAB PO SCH (13:05)
[2021-12-29 15:37] VITALS: BP 111/61; PULSE 83; RESP 16; TEMP 98.1
== END 2021-12-29 18:35 ==
LOC: OR 08:55 → 4SSUR 12:08 → OR 12-29 18:35
PROVIDERS: ATTEND Orthopaedic Surgery
DX: M17.12 Unilateral primary osteoarthritis, left knee (principal); G89.18 Other acute postprocedural pain; E03.9 Hypothyroidism, unspecified; Z79.890 Hormone replacement therapy
CPT/HCPCS: 97161; 97166; 64448; 76942; 82310; 85025; 88300; 73560; 27447; C1776; C1713 ×2; J2250; J1100; J0690 ×3; J2405; J1650; J2795; 64999; 87635